=== PATIENT | male | born 1960 | race African-American/Black ===

== ENCOUNTER 2022-10-30 22:08 | Emergency (ER) | payer OTHER ==
[~2022-10-30] VITALS: Ht 167.6 cm; Wt 78.0 kg
[2022-10-30] MEDS ORDERED: MEDROL4 M2 PO (22:41)
[2022-10-30] MEDS ORDERED: METRONIDAZOLE500 MG PO (23:38)
[2022-10-30] MEDS ORDERED: DOXYCYCLINE HY100 MG PO (23:38)
== END 2022-10-30 22:47 | disposition home or self-care (01) ==
LOC: ER 22:35
DX: M25.561 Pain in right knee (principal); G89.29 Other chronic pain; I10 Essential (primary) hypertension; I25.10 Atherosclerotic heart disease of native coronary artery without angina pectoris; I25.2 Old myocardial infarction
CPT/HCPCS: 99282

== ENCOUNTER 2022-10-30 23:34 | Emergency (ER) | payer OTHER ==
[~2022-10-30] VITALS: Ht 167.6 cm; Wt 78.0 kg
[~2022-10-30 23:34] MED LIST: MEDROL4 M2 PO
[2022-10-30] MEDS ORDERED: DOXYCYCLINE HY100 MG PO (23:38)
[2022-10-30] MEDS ORDERED: METRONIDAZOLE500 MG PO (23:38)
[2022-10-30] MEDS ORDERED: CEFTRIAXONE 500 MG VIAL IM ONE (23:45)
== END 2022-10-31 00:07 | disposition home or self-care (01) ==
LOC: ER 23:37
DX: Z20.2 Contact with and (suspected) exposure to infections with a predominantly sexual mode of transmission (principal)
CPT/HCPCS: 99282; J0696

== ENCOUNTER 2023-01-15 20:31 | Emergency (ER) | payer OTHER ==
[~2023-01-15] VITALS: Ht 167.6 cm; Wt 78.0 kg
[~2023-01-15 20:31] MED LIST changes: +DOXYCYCLINE HY100 MG PO; +METRONIDAZOLE500 MG PO
[2023-01-15] MEDS ORDERED: KETOROLAC TROMETHAMINE 30 MG/ML VIAL IM STA (22:41)
[2023-01-15] MEDS ORDERED: KETOROLAC TROMETHAMINE 30 MG/ML VIAL ONE (22:42)
[2023-01-15] MEDS ORDERED: KETOROLAC TROMETHAMINE 60 MG/2 ML VIAL IM ONE (22:45)
[2023-01-15 22:50] VITALS: BP 140/79; PULSE 72; RESP 16; TEMP 98; O2SAT 100
== END 2023-01-15 22:52 | disposition home or self-care (01) ==
LOC: ER 20:34
DX: M25.561 Pain in right knee (principal); G89.29 Other chronic pain; I10 Essential (primary) hypertension; I25.10 Atherosclerotic heart disease of native coronary artery without angina pectoris; I25.2 Old myocardial infarction
CPT/HCPCS: 73560; 99283; J1885

== ENCOUNTER 2024-01-16 07:07 | Emergency (ER) | payer SELFPAY ==
[~2024-01-16] VITALS: Ht 167.6 cm; Wt 78.0 kg
[~2024-01-16 07:07] MED LIST changes: +KETOROLAC TROME10 MG PO
[2024-01-16] MEDS: SODIUM CHLORIDE 0.9% 1000ML 1,000 ML IV ONE (07:40)
[2024-01-16] MEDS: ONDANSETRON HCL INJ 2MG/ML 2ML 2 MG/ML VIAL IV STA (07:40)
[2024-01-16] MEDS: Morphine 4mg INJECTION 4 MG/ML INJ IV ONE (07:41)
[2024-01-16 07:43] LABS: BASOPHILS # (AUTO) 0.1 (0.0-0.1); BASOPHILS % 1.1 % (0.0-1.0); EOSINOPHILS # (AUTO) 0.2 (0.0-0.4); EOSINOPHILS % 2.8 % (0.0-6.0); HEMATOCRIT 43.3 % (38.2-49.6); HEMOGLOBIN 15.2 g/dL (14.0-18.0); LYMPHOCYTES # (AUTO) 2.5 (1.0-3.2); LYMPHOCYTES % 30.9 % (18.0-39.1); MEAN CORPUSCULAR HEMOGLOBIN 35.8 pg (28-32); MEAN CORPUSCULAR HGB CONC 35.1 g/dL (31-35); MEAN CORPUSCULAR VOLUME 102.1 fL (81-99); MONOCYTES # (AUTO) 0.8 (0.2-0.8); MONOCYTES % 9.7 % (4.4-11.3); NEUTROPHILS # (AUTO) 4.5 (2.1-6.9); NEUTROPHILS % 55.3 % (38.7-80.0); PLATELET COUNT 366 x10e3/uL (140-360); RED BLOOD COUNT 4.24 x10e6/uL (4.3-5.7); RED CELL DISTRIBUTION WIDTH 12.9 % (11.7-14.4); WHITE BLOOD COUNT 8.15 x10e3/uL (4.8-10.8)
[2024-01-16 08:08] LABS: ALBUMIN 3.8 g/dL (3.5-5.0); ALBUMIN/GLOBULIN RATIO 0.9 (0.8-2.0); ANION GAP 14.1 mmol/L (8-16); BILIRUBIN,TOTAL 0.5 mg/dL (0.2-1.2); CALCIUM 9.5 mg/dL (8.4-10.2); CREATININE, SERUM 0.81 mg/dL (0.72-1.25); POTASSIUM 4.1 mmol/L (3.5-5.1)
[2024-01-16] MEDS ORDERED: IOPAMIDOL 370 MG/ML 100 ML INFUS..BTL INJ ONE (10:16)
[2024-01-16] MEDS: FAMOTIDINE 20 MG/2 ML VIAL IV STA (12:42)
[2024-01-16] MEDS: DONNATAL/LIDOCAINE/MAALOX 30 ML SUSP PO ONE (12:51)
[2024-01-16 12:56] VITALS: BP 138/78; PULSE 56; RESP 18; TEMP 97.5; O2SAT 96
== END 2024-01-16 12:58 | disposition home or self-care (01) ==
LOC: ER 07:17
DX: R10.13 Epigastric pain (principal); R11.0 Nausea; I10 Essential (primary) hypertension; E78.5 Hyperlipidemia, unspecified; I25.10 Atherosclerotic heart disease of native coronary artery without angina pectoris; R94.31 Abnormal electrocardiogram [ECG] [EKG]; I25.2 Old myocardial infarction; Z95.5 Presence of coronary angioplasty implant and graft
CPT/HCPCS: 36415; 74177; 76705; 80053; 83690; 84484; 85025; 93005; 99284; J2270; J2405; J7030; Q9967